=== PATIENT | male | born 1995 | race African-American/Black ===

== ENCOUNTER 2023-06-06 04:33 | Emergency (ER) | payer OTHER ==
[2023-06-06 04:45] VITALS: BP 131/86; PULSE 52; RESP 16; TEMP 98.6; BMI 26.2
[2023-06-06] MEDS ORDERED: ACETAMINOPHEN 325 MG TABLET (FP) PO ONE (05:19)
[2023-06-06] MEDS ORDERED: ACETAMINOPHEN 325 MG TABLET (FP) ONE (05:44)
== END 2023-06-06 06:52 | disposition home or self-care (01) ==
LOC: JER 04:33
DX: S63.501A Unspecified sprain of right wrist, initial encounter (principal); S62.91XA Unspecified fracture of right hand, initial encounter for closed fracture; W19.XXXA Unspecified fall, initial encounter; Y93.67 Activity, basketball
CPT/HCPCS: 73070-TC-RT-FY; 73110-TC-RT-FY; 73130-TC-RT-FY; 99283-25